=== PATIENT | male | born 1970 | race Caucasian/White ===

== ENCOUNTER 2016-10-29 23:56 | Emergency (ER) | payer OTHER ==
[~2016-10-29] VITALS: Ht 180.3 cm; Wt 102.1 kg
--- NOTE | 2016-10-30 00:31 | PHYS DOC ---
Past History Past Medical History: Hypertension Additional Past Medical Histor: Gout Past Surgical History: Appendectomy Additional Past Surgical Histo: Knee surgery (bilateral); back surgery x 4 Smoking: Non-smoker Alcohol Use: Occasionally Additional Alcohol Information: Last ethanol use Saturday night Drug Use: None Adult General Chief Complaint Chief Complaint: ABDOMINAL PAIN HPI HPI Patient is a 46 year old male who presents with abdominal pain. He is here for a course from [place] and arrived on Saturday. Last he had an episode of pain like this after eating that resolved, "I just thought it was gas." He then developed the pain tonight at around 1830 PM after eating BBQ. Mid abdomen; no radiation. No fever. Nausea and vomiting. Normal stools x 4 today. No urinary complaints. Review of Systems Review of Systems Constitutional: Denies fever or chills Eyes: Denies change in visual acuity, redness, or eye pain HENT: Denies nasal congestion or sore throat Respiratory: Denies cough or shortness of breath Cardiovascular: No chest pain GI: see HPI : Denies dysuria or hematuria Musculoskeletal: Denies back pain or joint pain Integument: Denies rash or skin lesions Neurologic: Denies headache, focal weakness or sensory changes Endocrine: Denies polyuria or polydipsia Current Medications Current Medications Current Medications Medications (Trade) Dose Ordered Sig/Jan Start Time Stop Time Status Last Admin Dose Admin Fentanyl Citrate (Fentanyl 2ml Vial) 50 mcg PRN Q15MIN PRN 10/30/16 00:30 10/31/16 00:29 UNV Ondansetron HCl (Zofran) 4 mg 1X ONCE 10/30/16 00:30 10/30/16 00:31 UNV Sodium Chloride 1,000 ml @ 1,000 mls/hr Q1H 10/30/16 00:22 10/30/16 01:21 UNV Allergies Allergies Allergies Coded Allergies Type Severity Reaction Last Updated Verified Penicillins Allergy Unknown 10/30/16 Yes Physical Exam Physical Exam Constitutional: Well developed, well nourished, no acute distress, non-toxic appearance. HENT: Normocephalic, atraumatic, bilateral external ears normal, oropharynx moist, no oral exudates, nose normal. Eyes: PERRLA, EOMI, conjunctiva normal, no discharge. Neck: Normal range of motion, no tenderness, supple, no stridor. Cardiovascular:Heart rate regular rhythm, no murmur Lungs & Thorax: Bilateral breath sounds clear to auscultation Abdomen: Bowel sounds normal, soft, tenderness mid abdomen, no masses, no pulsatile masses. No rebound or guarding Skin: Warm, dry, no erythema, no rash. Back: No tenderness, no CVA tenderness. Extremities: No tenderness, no cyanosis, no clubbing, ROM intact, no edema. Neurologic: Alert and oriented X 3, normal motor function, normal sensory function, no focal deficits noted. Psychologic: Affect normal, judgement normal, mood normal. Current Patient Data Vital Signs Vital Signs Date Time Temp Pulse Resp B/P (MAP) Pulse Ox O2 Delivery O2 Flow Rate FiO2 10/30/16 00:42 66 20 152/55 (87) 94 Room Air 10/30/16 00:13 97.7 Vital Signs Date Time Temp Pulse Resp B/P (MAP) Pulse Ox O2 Delivery O2 Flow Rate FiO2 10/30/16 00:13 97.7 64 22 97 Room Air Lab Results Laboratory Tests Test 10/30/16 00:29 10/30/16 01:30 White Blood Count 10.0 x10^3/uL (4.0-11.0) Red Blood Count 4.67 x10^6/uL (4.30-5.70) Hemoglobin 14.4 g/dL (13.0-17.5) Hematocrit 42.1 % (39.0-53.0) Mean Corpuscular Volume 90 fL (79-100) Mean Corpuscular Hemoglobin 31 pg (25-35) Mean Corpuscular Hemoglobin Concent 34 g/dL (31-37) Red Cell Distribution Width 13.5 % (11.5-14.5) Platelet Count 196 x10^3/uL (140-400) Neutrophils (%) (Auto) 54 % (31-73) Lymphocytes (%) (Auto) 35 % (24-48) Monocytes (%) (Auto) 6 % (0-9) Eosinophils (%) (Auto) 4 % (0-3) Basophils (%) (Auto) 1 % (0-3) Neutrophils # (Auto) 5.4 x10^3uL (1.8-7.7) Lymphocytes # (Auto) 3.5 x10^3/uL (1.0-4.8) Monocytes # (Auto) 0.6 x10^3/uL (0.0-1.1) Eosinophils # (Auto) 0.4 x10^3/uL (0.0-0.7) Basophils # (Auto) 0.1 x10^3/uL (0.0-0.2) Sodium Level 142 mmol/L (136-145) Potassium Level 3.7 mmol/L (3.5-5.1) Chloride Level 103 mmol/L (98-107) Carbon Dioxide Level 31 mmol/L (21-32) Anion Gap 8 (6-14) Blood Urea Nitrogen 24 mg/dL (8-26) Creatinine 2.1 mg/dL (0.7-1.3) Estimated GFR (Cockcroft-Gault) 33.9 BUN/Creatinine Ratio 11 (6-20) Glucose Level 144 mg/dL (70-99) Calcium Level 8.6 mg/dL (8.5-10.1) Total Bilirubin 0.3 mg/dL (0.2-1.0) Direct Bilirubin 0.1 mg/dL (0.0-0.2) Aspartate Amino Transf (AST/SGOT) 25 U/L (15-37) Alanine Aminotransferase (ALT/SGPT) 38 U/L (16-63) Alkaline Phosphatase 82 U/L (46-116) Total Protein 7.4 g/dL (6.4-8.2) Albumin 3.8 g/dL (3.4-5.0) Albumin/Globulin Ratio 1.1 (1.0-1.7) Lipase 235 U/L (73-393) Urine Collection Type Unknown Urine Color Yellow Urine Clarity Clear Urine pH 6.0 Urine Specific [place] 1.020 Urine Protein Neg (NEG-TRACE) Urine Glucose (UA) Neg mg/dL (NEG) Urine Ketones (Stick) Neg mg/dL (NEG) Urine Blood Small (NEG) Urine Nitrite Neg (NEG) Urine Bilirubin Neg (NEG) Urine Urobilinogen Dipstick 0.2 mg/dL (0.2 mg/dL) Urine Leukocyte Esterase Neg (NEG) Urine RBC Occ /HPF (0-2) Urine WBC 0 /HPF (0-4) Urine Squamous Epithelial Cells None /LPF Urine Bacteria 0 /HPF (0-FEW) Radiology/Procedures Radiology/Procedures [address] [address] IMAGING REPORT Signed PATIENT: BING BOSTON ACCOUNT: [id number] : 1970 LOCATION: ER AGE: 46 SEX: M EXAM STATUS: REG ER ORD. PHYSICIAN: CECILIO GRAY MD REASON: abd pain; r/o kidney stone PROCEDURE: CT ABDOMEN PELVIS WO CONTRAST INDICATION: [id number] Severe abdominal pain with nausea tonight. Hx: Appendectomy. No priors COMPARISON: None. TECHNIQUE: Axial CT images were obtained through the abdomen and pelvis without intravenous contrast. Limited assessment of solid organ structures and vasculature secondary to lack of intravenous contrast. One or more of the following individualized dose reduction techniques were utilized for this examination: 1. Automated exposure control; 2. Adjustment of the mA and/or kV according to patient size; 3. Use of iterative reconstruction technique. FINDINGS: Abdominal aorta not aneurysmal. Right greater than left fat-containing inguinal hernia. No intrahepatic bile duct dilation. Liver borderline low attenuation. Gallstones are visualized. Questionable mild pericholecystic edema versus motion artifact. No pancreatic edema. Spleen unremarkable. No left-sided hydronephrosis. No right-sided hydronephrosis. Bladder partially distended. There are some mildly prominent loops of small bowel left side of the abdomen without high-grade transition point. Degenerative changes spine. Postoperative changes to the lumbar spine status post posterior spinal fusion at L4-S1. IMPRESSION: 1. No evidence of hydronephrosis. 2. Gallstones are visualized. There is questionable mild pericholecystic edema versus motion artifact. Ultrasound may be helpful to further evaluate. Electronically signed by: Esthela Ramírez MD (10/30/2016 1:44 AM) [facility] DICTATED AND SIGNED BY: ESTHELA RAMÍREZ MD DATE: 10/30/16 0136 CC: CECILIO GRAY MD; PCP,UNKNOWN ~ Course & Med Decision Making Course & Med Decision Making Evaluated patient. Differential includes cholelithiasis and cholecystitis; pancreatitis; kidney stone. IV NS, IV Fentanyl and IV Zofran. At 0200 AM: Ct results back. Gallstones noted. Given biliary colic precautions. Is out of town so informed if pain worsens or he develops a fever he needs to return. dietary precautions given. He was informed that his creatinine was elevated today. He was given IV fluids. He needs repeat lab when he returns home. Rx: zofran and norco. He is having someone pick him up Dragon Disclaimer Dragon Disclaimer This chart was dictated in whole or in part using Voice Recognition software in a busy, high-work load, and often noisy Emergency Department environment. It may contain unintended and wholly unrecognized errors or omissions. Departure Departure: Impression: Primary Impression: Biliary colic Additional Impression: Cholelithiases Disposition: HOME, SELF-CARE Condition: GOOD Referrals: PCP,UNKNOWN (PCP) Patient Instructions: Cholelithiasis Scripts Hydrocodone Bit/Acetaminophen (NORCO 5-325 TABLET) 1 Each Tablet 1-2 TAB PO Q4-6HRS, #20 TAB Prov: CECILIO GRAY MD 10/30/16 Ondansetron (ZOFRAN ODT) 8 Mg Tab.rapdis 8 MG PO Q6-8HRS Y for NAUSEA, #10 Prov: CECILIO GRAY MD 10/30/16 Problem Qualifiers Additional Impression: Cholelithiases Cholelithiasis location: gallbladder Cholecystitis presence: without cholecystitis Biliary obstruction: without biliary obstruction Qualified Codes: K80.20 - Calculus of gallbladder without cholecystitis without obstruction CECILIO GRAY MD Oct 30, 2016 00:31
[2016-10-30] MEDS: fentaNYL PF 100 MCG/2 ML VIAL IV PRN ×3 (00:42→02:13)
[2016-10-30 00:56] LABS: BASO # 0.1 x10^3/uL (0.0-0.2); BASO % 1 % (0-3); EOS # 0.4 x10^3/uL (0.0-0.7); EOS % 4 % (0-3); HEMATOCRIT 42.1 % (39.0-53.0); HEMOGLOBIN 14.4 g/dL (13.0-17.5); LYMPH # 3.5 x10^3/uL (1.0-4.8); LYMPH % 35 % (24-48); MEAN CORPUSCULAR HEMOGLOBIN 31 pg (25-35); MEAN CORPUSCULAR HGB CONC 34 g/dL (31-37); MEAN CORPUSCULAR VOLUME 90 fL (79-100); MONO # 0.6 x10^3/uL (0.0-1.1); MONO % 6 % (0-9); NEUT # 5.4 x10^3uL (1.8-7.7); NEUT % 54 % (31-73); PLATELET COUNT 196 x10^3/uL (140-400); RED BLOOD COUNT 4.67 x10^6/uL (4.30-5.70); RED CELL DISTRIBUTION WIDTH 13.5 % (11.5-14.5)
[2016-10-30 01:00] LABS: ALBUMIN 3.8 g/dL (3.4-5.0); ALBUMIN/GLOBULIN RATIO 1.1 (1.0-1.7); CALCIUM 8.6 mg/dL (8.5-10.1); CREATININE 2.1 mg/dL (0.7-1.3); DIRECT BILIRUBIN 0.1 mg/dL (0.0-0.2); GFR 33.9; POTASSIUM 3.7 mmol/L (3.5-5.1); TOTAL BILIRUBIN 0.3 mg/dL (0.2-1.0); TOTAL PROTEIN 7.4 g/dL (6.4-8.2)
[2016-10-30] MEDS ORDERED: ONDANSETRON PF 4 MG/2 ML VIAL. IV ONE (01:00)
[2016-10-30] MEDS ORDERED: IV NORMAL SALINE 1,000ML 1,000 ML IV SCH (01:00)
--- NOTE | 2016-10-30 01:48 | RAD ---
INDICATION: [id number] Severe abdominal pain with nausea tonight. Hx: Appendectomy. No priors COMPARISON: None. TECHNIQUE: Axial CT images were obtained through the abdomen and pelvis without intravenous contrast. Limited assessment of solid organ structures and vasculature secondary to lack of intravenous contrast. One or more of the following individualized dose reduction techniques were utilized for this examination: 1. Automated exposure control; 2. Adjustment of the mA and/or kV according to patient size; 3. Use of iterative reconstruction technique. FINDINGS: Abdominal aorta not aneurysmal. Right greater than left fat-containing inguinal hernia. No intrahepatic bile duct dilation. Liver borderline low attenuation. Gallstones are visualized. Questionable mild pericholecystic edema versus motion artifact. No pancreatic edema. Spleen unremarkable. No left-sided hydronephrosis. No right-sided hydronephrosis. Bladder partially distended. There are some mildly prominent loops of small bowel left side of the abdomen without high-grade transition point. Degenerative changes spine. Postoperative changes to the lumbar spine status post posterior spinal fusion at L4-S1. IMPRESSION: 1. No evidence of hydronephrosis. 2. Gallstones are visualized. There is questionable mild pericholecystic edema versus motion artifact. Ultrasound may be helpful to further evaluate. Electronically signed by: Sedrick Ramírez MD (10/30/2016 1:44 AM) [facility]
[2016-10-30 01:51] LABS: BACTERIA,URINE 0 /HPF (0-FEW); BILIRUBIN,URINE NEG (NEG); CLARITY,URINE CLEAR; COLOR,URINE YELLOW; GLUCOSE,URINE NEG (NEG); NITRITE,URINE NEG (NEG); RBC,URINE OCC /HPF (0-2); UROBILINOGEN,URINE 0.2 mg/dL (0.2 mg/dL); WBC,URINE 0 /HPF (0-4)
[2016-10-30] MEDS ORDERED: HYDR-971 PO (02:09)
[2016-10-30] MEDS ORDERED: ONDA8TAB12 PO (02:09)
[2016-10-30 02:38] VITALS: BP 130/79
== END 2016-10-30 02:40 | disposition home or self-care (01) ==
LOC: ER 23:56
DX: K80.70 Calculus of gallbladder and bile duct without cholecystitis without obstruction (principal); I10 Essential (primary) hypertension; M10.9 Gout, unspecified; Z90.49 Acquired absence of other specified parts of digestive tract; Z88.0 Allergy status to penicillin
CPT/HCPCS: 36415; 74176; 80053; 80076; 81001; 83690; 85027; 96361; 96374; 96375; 96376; 99285; J2405; J3010; J7030